=== PATIENT | male | born 1975 | race Caucasian/White ===

== ENCOUNTER 2020-06-02 07:50 | Day surgery (SDC) | payer MEDICARE, OTHER ==
[~2020-06-02 07:50] MED LIST: BENADRYL25 MG PO; CEPHALEXIN500 MG PO; HYDROXYZINE HCL25 MG PO; VITAMIN D5000 UNIT PO
[2020-06-02] MEDS ORDERED: VITAMIN D310 MC4 PO (08:04)
[2020-06-02] MEDS ORDERED: VENTOLIN HFA18 GM (08:04)
--- NOTE | 2020-06-02 08:45 | NUR ---
IV ATTEMPTED 3 TIMES. DARINEL BLEW WHEN FLUID TURNED ON.
--- NOTE | 2020-06-02 11:20 | NUR ---
06/02/20 1120 Merlene Senior 1115- PT ARRIVES TO PACU OPENING HIS EYES. RESP EVEN AND UNLABORED. OXYGEN SAT HIGH 90'S TO 100% ON 10L VIA MASK.
--- NOTE | 2020-06-02 12:52 | NUR ---
REPORTS NAUSEA AND DRY HEAVING AFTER IV REMOVED. COOL WASHCLOTH AND ETOH PREP PAD PROVIDED. PT REPORTS WANTING TO GO HOME. REVIEWED DISCHARGE INSTRUCTIONS WITH PT AND CAREGIVER RALF AT BEDSIDE. ORIGIONAL PRESCRIPTION GIVEN WITH DC INSTRUCTIONS AND QUESTIONS ANSWERED. STEADY ON FEET WITH ONE PERSON STAND BY ASSIST FOR TRANSFER TO [facility] AT BEDSIDE. UNMEASURED URINE VOIDED. PT DENIES PAIN.
== END 2020-06-02 12:45 | disposition home or self-care (01) ==
LOC: DS 07:50 → OPS 07:50 → DS 09:00 → OPS 09:00
PROVIDERS: ATTEND Dentist
PROC: 0CRW0J1 Replacement of Upper Tooth, Multiple, with Synthetic Substitute, Open Approach (ICD-10-PCS; 2020-06-02)
PROC: 0CRX0J0 Replacement of Lower Tooth, Single, with Synthetic Substitute, Open Approach (ICD-10-PCS; principal; 2020-06-02 09:00)
DX: K02.9 Dental caries, unspecified (principal); K03.6 Deposits [accretions] on teeth; K05.4 Periodontosis; Q99.2 Fragile X chromosome; F84.0 Autistic disorder; F51.01 Primary insomnia; E55.9 Vitamin D deficiency, unspecified; Z79.899 Other long term (current) drug therapy
CPT/HCPCS: 00170; J0330; J1100; J1885; J2250; J2405; J2704; J2765; J3010; J7121

== ENCOUNTER 2020-08-06 13:30 | Emergency (ER) | payer MEDICARE, OTHER ==
[~2020-08-06] VITALS: Ht 165.1 cm; Wt 69.3 kg
[~2020-08-06 13:30] MED LIST changes: +VENTOLIN HFA18 GM; +VITAMIN D310 MC4 PO
--- OUTSIDE RECORDS SUMMARY | 2020-08-06 13:32 | XMS ---
PreManage Notification: JERONIMO CLEMONS Security Box Blank Machine Feeder Events No recent Security Events currently on file CRITERIA MET - [facility] CARE PROVIDERS There are no care providers on record at this time. [facility] has no Care Guidelines for this patient. Kathy VISIT COUNT (12 MO.) 1 HERLINDA Terry TOTAL 1 NOTE: Visits indicate total known visits. ED/C VISIT TRACKING (12 MO.) 08/06/2020 13:30 HERLINDA Pierre [place] TYPE: Emergency COMPLAINT: - BACK PAIN INPATIENT VISIT TRACKING (12 MO.) No inpatient visits to display in this time frame [id number]
[2020-08-06] MEDS ORDERED: BELSOMRA20 MG PO (13:55)
== END 2020-08-06 16:54 | disposition home or self-care (01) ==
LOC: ED 13:30
DX: M40.203 Unspecified kyphosis, cervicothoracic region (principal); Z79.899 Other long term (current) drug therapy
CPT/HCPCS: 72070; 99283-25